=== PATIENT | female | born 1990 | race American Indian/Alaskan Native ===

== ENCOUNTER 2018-09-27 13:45 | Emergency (ER) | payer MEDICAID, OTHER ==
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
[2018-09-27 14:19] VITALS: BP 152/96
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
== END 2018-09-27 17:14 | disposition home or self-care (01) ==
LOC: ED 13:45
DX: M54.2 Cervicalgia (principal); M25.512 Pain in left shoulder; I10 Essential (primary) hypertension; F17.200 Nicotine dependence, unspecified, uncomplicated; V89.2XXA Person injured in unspecified motor-vehicle accident, traffic, initial encounter; Y93.89 Activity, other specified; Y92.488 Other paved roadways as the place of occurrence of the external cause; Y99.8 Other external cause status
CPT/HCPCS: 36415; 70450; 71046; 72125; 84702; 84703; 99284

== ENCOUNTER 2020-12-28 11:03 | Emergency (ER) | payer SELFPAY ==
[2020-12-28 12:27] LABS: Bilirubin,Urine NEG (Negative); Blood,Urine SM (Negative); Color,Urine Yellow (Yellow); Mucus,Urine 1+ /HPF; Protein,Urine <15 mg/dL mg/dL (Negative); Urobilinogen,Urine < 2.0 mg/dL (<2.0)
[2020-12-28 12:35] LABS: HCG Qualitative,Urine Positive (Negative)
[2020-12-28 12:53] VITALS: BP 151/91
--- NOTE | 2020-12-28 12:53 | Emergency Department Report ---
ED General Adult HPI - General Chief complaint: Urogenital-Female Stated complaint: BLADDER INFECTION Time Seen by Provider: 12/28/20 12:29 Source: patient Mode of arrival: Ambulatory Limitations: No Limitations - History of Present Illness Initial comments: 30-year-old -[place] female patient presents with complaints of lower abdominal pain and urinary frequency x2 days. Patient also admits to dysuria, but denies any abnormal vaginal discharge or bleeding or dyspareunia. Last menstrual cycle was around the end of October per patient. She denies any fever/chills/sweats, nausea/vomiting, or stool changes. No other prior medical history per patient. - Related Data Previous Rx's Medication Instructions Recorded Last Taken Type Acyclovir [Zovirax] 400 mg PO 5XD #50 cap 12/02/13 Unknown Rx HYDROcodone/APAP 5-325 [Graff 1 each PO Q6HR PRN #20 tablet 12/02/13 Unknown Rx 5/325 mg] Ibuprofen [Motrin] 600 mg PO Q8H PRN #60 tablet 12/02/13 Unknown Rx Cyclobenzaprine HCl [Flexeril 5 MG 5 mg PO TID PRN #21 tab 09/27/18 Unknown Rx TAB] Naproxen [Naprosyn] 500 mg PO BID #14 tablet 09/27/18 Unknown Rx Amoxicillin/Potassium Clav 1 each PO BID 5 Days #10 tablet 12/28/20 Unknown Rx [Augmentin 875-125 Tablet] Allergies Allergy/AdvReac Type Severity Reaction Status Date / Time No Known Allergies Allergy Unverified 12/02/13 10:11 ED Review of Systems ROS: Stated complaint: BLADDER INFECTION Other details as noted in HPI Constitutional: denies: chills, diaphoresis, fever, malaise Cardiovascular: denies: chest pain Gastrointestinal: abdominal pain. denies: nausea, vomiting, diarrhea, constipation Genitourinary: urgency, dysuria, frequency. denies: hematuria, discharge, dyspareunia Skin: denies: change in color Hematological/Lymphatic: denies: swollen glands ED Past Medical Hx - Past Medical History Previous Medical History?: Yes Hx Hypertension: Yes Hx Congestive Heart Failure: No Hx Diabetes: No Hx Deep Vein Thrombosis: No Hx Renal Disease: No Hx Sickle Cell Disease: No Hx Seizures: No Hx Asthma: No Hx COPD: No Hx HIV: No - Social History Smoking Status: Current Every Day Smoker Substance Use Type: None - Medications Home Medications: Home Medications Medication Instructions Recorded Confirmed Last Taken Type Acyclovir [Zovirax] 400 mg PO 5XD #50 cap 12/02/13 Unknown Rx HYDROcodone/APAP 5-325 [Graff 1 each PO Q6HR PRN #20 tablet 12/02/13 Unknown Rx 5/325 mg] Ibuprofen [Motrin] 600 mg PO Q8H PRN #60 tablet 12/02/13 Unknown Rx Cyclobenzaprine HCl [Flexeril 5 MG 5 mg PO TID PRN #21 tab 09/27/18 Unknown Rx TAB] Naproxen [Naprosyn] 500 mg PO BID #14 tablet 09/27/18 Unknown Rx Amoxicillin/Potassium Clav 1 each PO BID 5 Days #10 tablet 12/28/20 Unknown Rx [Augmentin 875-125 Tablet] ED Physical Exam - General Limitations: No Limitations General appearance: alert, in no apparent distress - Head Head exam: Present: atraumatic, normocephalic - Eye Eye exam: Present: normal appearance - ENT ENT exam: Present: mucous membranes moist - Respiratory Respiratory exam: Absent: respiratory distress - Cardiovascular Cardiovascular Exam: Present: regular rate - GI/Abdominal GI/Abdominal exam: Present: soft, tenderness (Mild suprapubic), normal bowel sounds. Absent: distended, guarding, rebound, rigid - Back Exam Back exam: Present: normal inspection. Absent: CVA tenderness (R), CVA tende rness (L) - Neurological Exam Neurological exam: Present: alert, oriented X3 - Psychiatric Psychiatric exam: Present: normal affect, normal mood - Skin Skin exam: Present: warm, dry, intact, normal color. Absent: rash ED Course Vital Signs 12/28/20 11:47 Temperature 98.6 F Pulse Rate 96 H Respiratory 14 Rate Blood Pressure 151/91 O2 Sat by Pulse 100 Oximetry ED Medical Decision Making - Lab Data Result diagrams: 12/28/20 13:05 12/28/20 13:05 - Radiology Data Radiology results: report reviewed [facility]IME[facility] OBSTETRIC ULTRASOUND ULTRASOUND OB TRANSVAGINAL HISTORY: Pain in early COMPARISON: None. TECHNIQUE: Routine transabdominal and transvaginal OB ultrasound performed. FINDINGS: Uterus: Mildly enlarged measuring 10.4 x 5.9 x 6.7 cm. Gestational Sac: There is suggestion of a tiny cyst in the endometrial canal measuring 5.8 mm. This may represent a very early intrauterine gestational sac estimated at 5 weeks 2 days. Yolk Sac: Not seen Fetus/Embryo: Not seen Embryonic/ cardiac activity: None seen Placenta: Too small for evaluation. Ovaries: The right ovary is normal in size and appearance with normal blood flow, measuring 3.2 x 2.2 x 3.0 cm. The left ovary is normal in size and appearance with normal blood flow, measuring 3.3 x 3.5 x 3.4 cm. Hypoechoic space-occupying mass in the left ovary with peripheral vascularity is most likely the corpus luteum. - Medical Decision Making 30-year-old -[place] female patient presents with complaints of lower abdominal pain and urinary frequency x2 days. Patient also admits to dysuria, but denies any abnormal vaginal discharge or bleeding or dyspareunia. Last menstrual cycle was around the end of October per patient. She denies any fever/chills/sweats, nausea/vomiting, or stool changes. No other prior medical history per patient. UA shows 144 WBCs. Positive urine beta hCG. Patient states was unknown. Given pain, ultrasound and lab work was done to evaluate the . Ultrasound shows early gestational sac versus endometrial cyst. Blood pressure noted to be elevated, patient admits to history of hypertension and states she is not compliant with her blood pressure medication. Patient to follow-up with [facility] concerning this, referral provided. Her vitals are otherwise normal, she is well-appearing, she is stable for discharge home. Strict return precautions were discussed in detail with patient who verbalizes understanding Critical care attestation.: If time is entered above; I have spent that time in minutes in the direct care of this critically ill patient, excluding procedure time. ED Disposition Clinical Impression: Elevated blood pressure affecting in first trimester, antepartum, UTI in Disposition: DC-01 TO HOME OR SELFCARE Is pt being admited?: No Condition: Stable Instructions: Hypertension During , [id number], and Urinary Tract Infection Prescriptions: Amoxicillin/Potassium Clav [Augmentin 875-125 Tablet] 1 each PO BID 5 Days #10 tablet Referrals: [facility] [Provider Group] - 3-5 Days (Elevated Blood pressure )
[2020-12-28 13:41] LABS: Basophils % (Auto) 0.4 % (0.0-1.8); Eosinophils # (Auto) 0.3 K/mm3 (0.0-0.4); Eosinophils % (Auto) 5.2 % (0.0-4.3); Lymphocytes # (Auto) 1.3 K/mm3 (1.2-5.4); Mean Corpuscular HGB Conc 30 % (30-34); Mean Corpuscular Volume 71 fl (79-97); Monocytes # (Auto) 0.5 K/mm3 (0.0-0.8); Monocytes % (Auto) 7.8 % (0.0-7.3); Platelet Count 348 K/mm3 (140-440); Red Cell Distribution Width 18.4 % (13.2-15.2)
[2020-12-28 13:42] LABS: Hematocrit 30.6 % (30.3-42.9); Hemoglobin 9.1 gm/dl (10.1-14.3)
[2020-12-28 13:46] LABS: Alanine Aminotransferase 15 units/L (7-56); Albumin 4.3 g/dL (3.9-5); Blood Urea Nitrogen 7 mg/dL (7-17); Calcium 8.5 mg/dL (8.4-10.2); Hemolysis Index 2
[2020-12-28 14:07] LABS: BUN/Creatinine Ratio 14
--- NOTE | 2020-12-28 14:45 | Ultrasound Report ---
[facility]IME[facility] OBSTETRIC ULTRASOUND ULTRASOUND OB TRANSVAGINAL HISTORY: Pain in early COMPARISON: None. TECHNIQUE: Routine transabdominal and transvaginal OB ultrasound performed. FINDINGS: Uterus: Mildly enlarged measuring 10.4 x 5.9 x 6.7 cm. Gestational Sac: There is suggestion of a tiny cyst in the endometrial canal measuring 5.8 mm. This m ay represent a very early intrauterine gestational sac estimated at 5 weeks 2 days. Yolk Sac: Not seen Fetus/Embryo: Not seen Embryonic/ cardiac activity: None seen Placenta: Too small for evaluation. Ovaries: The right ovary is normal in size and appearance with normal blood flow, measuring 3.2 x 2. 2 x 3.0 cm. The left ovary is normal in size and appearance with normal blood flow, measuring 3.3 x 3.5 x 3.4 cm. Hypoechoic space-occupying mass in the left ovary with peripheral vascularity is most likely the corpus luteum. Additional findings: None. IMPRESSION A tiny cyst is seen in the endometrial canal. This may represent a very early intrauterine gestationa l sac. No pole, yolk sac or heartbeat is seen at this time. Close interval follow-up is recomme nded. Signer Name: Hugo Alvarez Jr, MD Signed: 12/28/2020 2:41 PM Workstation Name: [id number]
== END 2020-12-28 16:00 | disposition home or self-care (01) ==
LOC: ED 11:03
DX: O26.891 Other specified pregnancy related conditions, first trimester (principal); I10 Essential (primary) hypertension; O23.41 Unspecified infection of urinary tract in pregnancy, first trimester; F17.200 Nicotine dependence, unspecified, uncomplicated; Z79.899 Other long term (current) drug therapy; Z3A.01 Less than 8 weeks gestation of pregnancy
CPT/HCPCS: 36415; 76801; 76817; 80053; 81001; 81025; 84702; 85025; 99284